=== PATIENT | male | born 1950 | race Caucasian/White ===

== ENCOUNTER 2017-12-13 12:34 | Inpatient (IN) ==
[2017-12-13] MEDS ORDERED: MAGNESIUM HYDROXIDE 30 ML ORAL.SUSP PO PRN (13:54)
[2017-12-13] MEDS ORDERED: ONDANSETRON 4 MG/2 ML VIAL IV PRN (13:54)
[2017-12-13] MEDS ORDERED: ACETAMINOPHEN 1,000 MG/100 ML BOTTLE IV PRN (13:54)
[2017-12-13] MEDS ORDERED: POTASSIUM CHLORIDE 20 MEQ PACKET PO PRN (13:54)
[2017-12-13] MEDS ORDERED: MAGNESIUM SULFATE 2 GM/50 ML BAG IV PRN (13:54)
[2017-12-13] MEDS ORDERED: LEVOFLOXACIN 750 MG/150 ML BAG IV ONE (15:00)
[2017-12-13] MEDS: 0.9 % SODIUM CHLORIDE 10 ML SYRINGE IV SCH ×2 (15:17→21:06)
[2017-12-13] MEDS: IPRATROPIUM/ALBUTEROL 3 ML AMPUL.NEB NEB SCH ×3 (15:19→23:05)
[2017-12-13 15:22] LABS: C-Reactive Protein 20.3 mg/dl (0.0-0.8)
--- NOTE | 2017-12-13 15:36 | History and Physical Report ---
DATE OF ADMISSION: 12/13/2017 REASON FOR ADMISSION: Shortness of breath, weakness, and fever. HISTORY OF CHIEF COMPLAINT: The patient is a 67-year-old gentleman with over 42-[id number] history of smoking, an active smoker who went in to [facility] ER with worsening shortness of breath that had evolved over the last 7 days. The patient's symptoms started with upper respiratory symptoms, coryza, runny nose, and not feeling well. However, over the last couple of days he has gotten progressively short of breath, limiting his ability to function. He has been increasingly expectorating white, frothy sputum. He had associated fever along with chills and sweats. He denies headache, diarrhea, chest pain. Initial workup in the ER was significant for a white count of 12.6, sats in low 70s on room air with a pH of 7.33. Due to lack of availability of beds at [facility], Hospitalist Service was consulted at [facility]. The patient also in the meanwhile had a chest x-ray done which showed bibasilar infiltrates, suspected for pneumonia, along with EKG with sinus tachycardia without any ST changes. On arrival to the ICU, the patient is off BiPAP as he did not tolerate on the way. He is in significant distress, unable to talk in full sentences. He was able to endorse history as above. He denies recent travel. He denies taking pneumonia or flu vaccine. His last hospitalization for pneumonia was 2 years ago at [facility]. He denies changes in medications. He continues to smoke. However, pledges to quit and has not had a smoke in the last 3 days. REVIEW OF SYSTEMS: A 10-point review of system was performed and is negative except the ones discussed above. PAST MEDICAL HISTORY: 1. History of COPD. 2. Active smoker. 3. History of hypertension. CURRENT MEDICATIONS: 1. Tiotropium b.i.d. 2. Prednisone 50 mg daily. 3. Levofloxacin. 4. Hydrochlorothiazide 25 mg daily. 5. Symbicort inhaled twice daily. 6. Zithromax 250 mg daily. SOCIAL HISTORY: The patient lives at [place]. He has two brothers who remain in close touch with him. He otherwise manages fairly independently. He continues to smoke. He uses a fair amount of alcohol. No substance abuse. Immunization history: No recent flu or pneumonia vaccine. CODE STATUS: FULL CODE. PHYSICAL EXAMINATION: GENERAL: The patient is alert, oriented, significantly anxious, short of breath and tachycardic. VITAL SIGNS: Blood pressure 131/77, respiration rate 36, temperature 100.1, pulse 110, sats 96% on 7 liters oxygen. HEENT: Pupils symmetric. Oral cavity is dry. No ear or nose discharge. Head is normocephalic and atraumatic. CHEST: abored, tachypneic. Diminished breath sounds at bases with bronchial breath sounds left posterior chest, tachycardia. ESM grade 1. Diminished breath sounds. ABDOMEN: Soft and nontender. LOWER EXTREMITIES: No cyanosis or clubbing. No joint swelling. SKIN: No suspicious lesions. PSYCH: Alert, anxious and slightly diaphoretic but cooperative. NEURO: Nonfocal, moving all four extremities. LABS AND IMAGING: [id number] sodium 133, potassium 4.4, creatinine 1.8, BUN 34, calcium 1.06. White count 12.6, hemoglobin 15.9, and platelets 180. BUN 29. LFTs unremarkable except for bilirubin of 1.5. X-ray chest: Bilateral infiltrates. EKG: Sinus tachycardia. ASSESSMENT AND PLAN: A 67-year-old with history of long-term smoking, likely underlying COPD, admitted with bilateral pneumonia, severe sepsis, hypoxic respiratory failure. 1. Hypoxic respiratory failure secondary to combination of bilateral pneumonia and COPD exacerbation. Continue supplemental oxygen. Start noninvasive ventilation if patient continues to deteriorate. Await ABG, repeat serial chest imaging. 2. Bilateral pneumonia, likely community-acquired versus aspiration. Continue empiric coverage for gram-negatives/anaerobes with Zosyn, along with an atypicals with Levaquin. Continue clinical monitoring and follow CXR. Await sputum, Gram stain culture, along with urine pneumophila, strep pneumo and mycoplasma IgM. 3. Sepsis. Continue management per guidelines. Continue venous lactate trending. Monitor for end-organ dysfunction. 4. COPD exacerbation. Continue bronchodilators, steroids. 5. History of hypertension with systolics around 130. Hold antihypertensives until systolics over 160. 6. CODE STATUS: FULL CODE. 7. DVT prophylaxis will be on heparin. PLAN FOR TODAY: 1. Admit as inpatient in ICU. 2. Noninvasive ventilation. 3. Broad antibiotic coverage. 4. Blood gas and serial chest imaging. 5. [place] II score 20. High risk mortality. total time spent 65 minutes on history and physical. In addition 35 minutes critical care time spent on stabilizing patient admitted to ICU, noninvasive ventilation, treatment plan. AA:aleisha Job ID: [id number] Doc ID: [id number] Ham SIMMONS
[2017-12-13] MEDS: PIPERACILLIN SODIUM/TAZOBACTAM 2.25 GM in DEXTROSE 5% IN WATER 50 ML IV SCH (17:03)
[2017-12-13] MEDS: 0.9 % SODIUM CHLORIDE 1,000 ML IV SCH (17:35)
[2017-12-13] MEDS: methylPREDNISolone SOD SUCC 125 MG/2 ML VIAL IV SCH (17:41)
[2017-12-13] MEDS: ACETAMINOPHEN 325 MG TABLET PO PRN (17:42)
[2017-12-13] MEDS: BUDESONIDE 0.5 MG/2 ML AMPUL.NEB NEB SCH (19:00)
[2017-12-13] MEDS ORDERED: LORazepam 2 MG/ML VIAL ONE ×2 (20:00→20:19)
[2017-12-13] MEDS: SENNOSIDES/DOCUSATE SODIUM 1 TAB TABLET PO SCH (20:02)
[2017-12-13] MEDS: HEPARIN 5,000 UNIT/ML VIAL SQ SCH (20:02)
[2017-12-13] MEDS: DOCUSATE SODIUM 100 MG CAPSULE PO SCH (20:02)
[2017-12-13] MEDS ORDERED: TAMSULOSIN 0.4 MG CAPSULE PO ONE (21:24)
[2017-12-14] MEDS: PIPERACILLIN SODIUM/TAZOBACTAM 2.25 GM in DEXTROSE 5% IN WATER 50 ML IV SCH ×4 (00:09→18:23)
[2017-12-14] MEDS: methylPREDNISolone SOD SUCC 125 MG/2 ML VIAL IV SCH ×4 (00:11→18:24)
[2017-12-14] MEDS: IPRATROPIUM/ALBUTEROL 3 ML AMPUL.NEB NEB SCH ×6 (03:38→23:02)
[2017-12-14 04:18] LABS: Appearance,Urine CLEAR; Bacteria,Urine 0 /hpf (0); Bilirubin,Urine NEG (NEG); Color,Urine YELLOW; Glucose,Urine (UA) NEGATIVE (NEG); Leukocyte Esterase,Urine NEG /uL (NEG); Protein,Urine 100 mg/dL (NEG); Specific Gravity,Urine 1.019 (1.000-1.035); Sperm,Urine PRESENT /hpf (ABSENT); Urine Blood NEG mg/dL (<0.03); Urine RBC 0 /hpf (0-1); Urine Squamous Epithelial Cell 0 /hpf (0-4); Urine WBC 1 /hpf (0-4); Urobilinogen,Urine NEG (NEG)
[2017-12-14] MEDS: 0.9 % SODIUM CHLORIDE 10 ML SYRINGE IV SCH ×7 (05:54→22:15)
[2017-12-14 06:19] LABS: Mean Cell Volume 100.5 fL (80.0-100.0); Mean Corpuscular HGB Conc 34.2 g/dL (31.0-36.0); Mean Corpuscular Hemoglobin 34.3 pg (26.0-34.0); Platelet Count 127 K/mcL (140-440); RBC 4.16 M/mcL (4.50-5.90); Red Cell Distribution Width 15.5 % (11.5-14.5)
[2017-12-14 06:25] LABS: ALT/SGPT 24 U/l (0-40); Albumin 2.6 gm/dL (3.2-5.2); Albumin/Globulin Ratio 0.6 (1.0-2.3); Alkaline Phosphatase 30 U/L (39-117); Bilirubin,Direct < 0.2 mg/dL (0.0-0.3); Blood Urea Nitrogen 30 mg/dl (8-23); Gamma Glutamyl Transpeptidase 12 U/L (8-61)
[2017-12-14 06:51] LABS: Anisocytosis 1+ (NONE SEEN); Band Neutrophils % 37 % (0-10); Lymphocytes % 7 % (15-49); Macrocytosis 1+ (NONE SEEN); Monocytes % (Manual) 4 % (1-12); Platelet Estimate DECREASED (NORMAL); RBC Morphology ABNORM (NORMAL); Segmented Neutrophils % 52 % (38-78)
[2017-12-14] MEDS: BUDESONIDE 0.5 MG/2 ML AMPUL.NEB NEB SCH ×2 (07:21→19:05)
[2017-12-14] MEDS ORDERED: TAMSULOSIN 0.4 MG CAPSULE PO ONE (09:00)
[2017-12-14] MEDS: DOCUSATE SODIUM 100 MG CAPSULE PO SCH ×2 (09:45→23:49)
[2017-12-14] MEDS: NICOTINE 21 MG PATCH TOPICAL SCH ×2 (09:45→11:11)
[2017-12-14] MEDS: MULTIVIT,THER IRON,CA,FA & MIN 1 TABLET PO SCH (09:45)
[2017-12-14] MEDS: HEPARIN 5,000 UNIT/ML VIAL SQ SCH ×2 (09:45→21:20)
[2017-12-14] MEDS: 0.9 % SODIUM CHLORIDE 1,000 ML IV SCH (16:58)
--- NOTE | 2017-12-14 19:52 | Internal Med Progress Note ---
Medical - PN: Subj Patient information: Note initiated : 12/14/17 at 7:50 pm Service Date, if different from initiated Date: [] Patient: Tony Newton 67 y/o M admitted on 12/13/17 for Respiratory Distress/Pneumonia, Sepsis, Hypoxia. Chief Complaint: [] Interval history: The patient is a 67-year-old gentleman with over 48-bkht-[id number] history of smoking, an active smoker who went in to [facility] ER with worsening shortness of breath that had evolved over the last 7 days. The patient's symptoms started with upper respiratory symptoms, coryza, runny nose, and not feeling well. However, over the last couple of days he has gotten progressively short of breath, limiting his ability to function. He has been increasingly expectorating white, frothy sputum. He had associated fever along with chills and sweats. He denies headache, diarrhea, chest pain. Initial workup in the ER was significant for a white count of 12.6, sats in low 70s on room air with a pH of 7.33. Due to lack of availability of beds at [facility], Hospitalist Service was consulted at [facility]. The patient also in the meanwhile had a chest x-ray done which showed bibasilar infiltrates, suspected for pneumonia, along with EKG with sinus tachycardia without any ST changes. On arrival to the ICU, the patient is off BiPAP as he did not tolerate on the way. He is in significant distress, unable to talk in full sentences. He was able to endorse history as above. He denies recent travel. He denies taking pneumonia or flu vaccine. His last hospitalization for pneumonia was 2 years ago at [facility]. He denies changes in medications. He continues to smoke. However, pledges to quit and has not had a smoke in the last 3 days. December 14 Patient seen and examined, overnight the patient did require BiPAP because of respiratory distress however this morning he is able to remain off BiPAP and able to provide some history. He still complains of shortness of breath but feels better than last night. The patient denies any other symptoms. Has any chest pain no headache no dizziness. He is able to tolerate p.o. diet well without any nausea vomiting. Pertinent ROS: Denies headache, dizziness Denies chest pain, palpitations Improving cough and shortness of breath Denies abdominal pain, nausea or vomiting. - Constitutional Vitals: Vital Signs Temp Pulse Resp BP Pulse Ox 98.7 F 110 H 24 H 157/96 97 12/14/17 16:01 12/14/17 19:15 12/14/17 19:15 12/14/17 18:14 12/14/17 18:14 Period Temp Pulse Resp BP Sys/Raya Pulse Ox Last 24 Hr 97.3 F-99.4 F 87-110 20-38 121-168/71-126 91-100 Intake and Output 12/14/17 12/14/17 12/14/17 05:59 13:59 21:59 Intake Total 1050 / 1050 100 / 100 440 / 440 Output Total 750 / 750 1 / 1 Balance 300 / 300 100 / 100 439 / 439 Weight 144 lb 9.6 oz Patient Weight 12/15/17 05:59 Weight 144 lb 9.6 oz Intake & Output: Intake & Output 12/14/17 12/14/17 12/14/17 05:59 13:59 21:59 Intake Total 1050 / 1050 100 / 100 440 / 440 Output Total 750 / 750 1 / 1 Balance 300 / 300 100 / 100 439 / 439 Weight 144 lb 9.6 oz Intake: IV 1050 / 1050 100 / 100 Sodium Chloride 0.9% 1,000 ml @ 1000 / 1000 Wide Open IV [facility] Rx#: [id number] Zosyn 2.25 gm In Dextrose 5% in 50 / 50 100 / 100 Water 50 ml @ 100 mls/hr IV Q6H [facility] Rx#:[id number] Oral 440 / 440 Output: Urine Catheter Amount 750 / 750 Urine/Stool Mix Other: Meal Dinner Percent of Meal Consumed 50% Feeding Ability Independent Stool Size Small Stool Color Brown Stool Consistency Soft Exam: Constitutional; Afebrile, cooperative, alert, not in distress. Eyes- No icterus, , No periorbital swelling Ears- Ext ear normal, hearing normal to conversation. Neck- Midline trachea, supple Respiratory system: Air Entry equal on both sides bibasilar crackles, henrique wheezing noted. CVS- Rate rhythm regular, S1,S2 heard, no gallop, no rub. 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 Medical - PN: Obj Da - Labs CBC & Chem 7: 12/14/17 04:18 12/14/17 04:18 Labs: Abnormal Lab Results 12/14/17 12/14/17 12/14/17 04:18 04:18 02:39 RBC 4.16 L MCV 100.5 H MCH 34.3 H RDW 15.5 H Plt Count 127 L Band Neutrophils % 37 H Lymphocytes % 7 L Platelet Estimate Decreased A RBC Morphology Abnorm A Anisocytosis 1+ A Macrocytosis 1+ A ESR VBG Lactic Acid Carbon Dioxide 21 L POC BUN BUN 30 H POC Creatinine Glucose 117 H POC Glucose POC WB Ioniz Calcium AST 40 H Alkaline Phosphatase 30 L Lactate Dehydrogenase 300 H C-Reactive Protein Albumin 2.6 L Globulin 4.6 H Albumin/Globulin Ratio 0.6 L Urine Protein 100 A Urine Sperm Present A 12/13/17 12/13/17 12/13/17 14:12 14:12 14:12 RBC MCV MCH RDW Plt Count Band Neutrophils % Lymphocytes % Platelet Estimate RBC Morphology Anisocytosis Macrocytosis ESR VBG Lactic Acid 3.4 H Carbon Dioxide POC BUN 34 H BUN POC Creatinine 1.8 H Glucose POC Glucose 135 H POC WB Ioniz Calcium 1.06 L AST Alkaline Phosphatase Lactate Dehydrogenase C-Reactive Protein 20.3 H Albumin Globulin Albumin/Globulin Ratio Urine Protein Urine Sperm 12/13/17 14:12 RBC MCV MCH RDW Plt Count Band Neutrophils % Lymphocytes % Platelet Estimate RBC Morphology Anisocytosis Macrocytosis ESR 32 H VBG Lactic Acid Carbon Dioxide POC BUN BUN POC Creatinine Glucose POC Glucose POC WB Ioniz Calcium AST Alkaline Phosphatase Lactate Dehydrogenase C-Reactive Protein Albumin Globulin Albumin/Globulin Ratio Urine Protein Urine Sperm Meds: Medications Acetaminophen (Tylenol) 650 mg PO Q4-6HP PRN PRN Reason: PAIN/FEVER > 101 Last Admin: 12/13/17 17:42 Dose: 650 mg Albuterol/Ipratropium (Duoneb) 3 ml NEB Q4HRT [facility] Last Admin: 12/14/17 19:14 Dose: 3 ml Budesonide (Pulmicort) 0.5 mg NEB Q12 [facility] Last Admin: 12/14/17 19:05 Dose: 0.5 mg Docusate Sodium (Colace) 100 mg PO BID [facility] Last Admin: 12/14/17 09:45 Dose: 100 mg Heparin Sodium (Porcine) (Heparin) 5,000 unit SQ Q12 [facility] Last Admin: 12/14/17 09:45 Dose: 5,000 unit Levofloxacin (Levaquin) 750 mg in 150 mls @ 100 mls/hr IV Q48H [facility] Magnesium Sulfate (Magnesium Sulfate) 2 gm in 50 mls @ 50 mls/hr IV UD PRN PRN Reason: MG = or < 1.7 Acetaminophen (Ofirmev) 1,000 mg in 100 mls @ 200 mls/hr IV Q6HP PRN PRN Reason: PAIN/FEVER > 101 Piperacillin Sod/Tazobactam (Sod 2.25 gm/ Dextrose) 50 mls @ 100 mls/hr IV Q6H [facility] Last Admin: 12/14/17 18:23 Dose: 100 mls/hr Sodium Chloride (Sodium Chloride 0.9%) 1,000 mls @ 0 mls/hr IV BOLUS [facility] PRN Reason: Wide Open Last Admin: 12/14/17 16:58 Dose: Not Given Iron Carb/Multivit/Dredge Pumper/Folic Acid (Multivitamin W/Minerals) 1 tab PO DAILY [facility] Last Admin: 12/14/17 09:45 Dose: 1 tab Lorazepam (Ativan) 0 mg IV Q4HP PRN PRN Reason: ANXIETY/SEDATION Magnesium Hydroxide (Milk Of Magnesia) 30 ml PO HSP PRN PRN Reason: Constipation Methylprednisolone Sodium Succinate (Solu-Medrol) 60 mg IV Q6 [facility] Last Admin: 12/14/17 18:24 Dose: 60 mg Nicotine (Nicoderm) 21 mg TOPICAL DAILY@1000 [facility] Last Admin: 12/14/17 11:11 Dose: Not Given Ondansetron HCl (Zofran) 4 mg IV Q4-6HP PRN PRN Reason: Nausea And Vomiting Potassium Chloride (Klor-Con) 40 meq PO DAILYP PRN PRN Reason: K+ < 3.5 Senna/Docusate Sodium (Senna Plus Tablet) 1 tab PO HS [facility] Last Admin: 12/13/17 20:02 Dose: 1 tab Sodium Chloride (Saline Flush) 10 ml IV Q8 [facility] Last Admin: 12/14/17 18:26 Dose: 10 ml Medical - PN: A/P - Time Spent With Patient Total time spent is greater than 50% in coordination of care (as documented) at patient's floor/unit and/or counseling patient: - Narrative A/P Narrative: A/P Acute hypoxic respiratory failure BIlateral Pneumonia Severe Sepsis COPD exacerbation, Acute Hypertension Lactic acidosis resolved (last lactate 1.9 on ABG) Plan Continue to monitor on pcu status Continue IV antibiotics, steroids and duonebs continue respiratory support with bipap, ABG reviewed monitor x ray pt on zosyn and levoflox await microbiology descalate abx as per culture results. strep and mycoplasma pneumoniae negative. hep sq dvt prophylaxis Diet dysphagia diet full code. Medical - PN: Qual - Stroke Symptom Onset Unknown: No - VTE Deep Vein Thrombosis/Pulmonary Embolism Present on Admission: No
[2017-12-14] MEDS: LORazepam 2 MG/ML VIAL IV PRN (21:15)
[2017-12-14] MEDS: SENNOSIDES/DOCUSATE SODIUM 1 TAB TABLET PO SCH (23:49)
[2017-12-15] MEDS: PIPERACILLIN SODIUM/TAZOBACTAM 2.25 GM in DEXTROSE 5% IN WATER 50 ML IV SCH ×4 (00:58→18:29)
[2017-12-15] MEDS: methylPREDNISolone SOD SUCC 125 MG/2 ML VIAL IV SCH ×4 (01:00→18:30)
[2017-12-15] MEDS: IPRATROPIUM/ALBUTEROL 3 ML AMPUL.NEB NEB SCH ×6 (03:10→23:27)
[2017-12-15 05:40] LABS: Mean Cell Volume 100.8 fL (80.0-100.0); Mean Corpuscular HGB Conc 33.5 g/dL (31.0-36.0); Mean Corpuscular Hemoglobin 33.8 pg (26.0-34.0); Platelet Count 160 K/mcL (140-440); RBC 3.89 M/mcL (4.50-5.90); Red Cell Distribution Width 15.4 % (11.5-14.5)
[2017-12-15 06:00] LABS: ALT/SGPT 21 U/l (0-40); Albumin 2.5 gm/dL (3.2-5.2); Albumin/Globulin Ratio 0.6 (1.0-2.3); Alkaline Phosphatase 30 U/L (39-117); Bilirubin,Direct < 0.2 mg/dL (0.0-0.3); Blood Urea Nitrogen 34 mg/dl (8-23); Gamma Glutamyl Transpeptidase 11 U/L (8-61)
[2017-12-15] MEDS: 0.9 % SODIUM CHLORIDE 10 ML SYRINGE IV SCH ×3 (06:17→20:45)
--- NOTE | 2017-12-15 06:20 | XRay Report ---
INDICATION: Pneumonia. Dyspnea. TECHNIQUE: AP chest x-ray,portable semiupright COMPARISON: None FINDINGS:Lungs are negative. No parenchymal infiltrate or mass. No consolidation. Heart size and vascularity are normal. No pulmonary edema or pulmonary congestion. IMPRESSION: No acute or focal abnormality Interpreted and Authenticated by: Stew Connelly 12/15/17
[2017-12-15] MEDS: BUDESONIDE 0.5 MG/2 ML AMPUL.NEB NEB SCH ×2 (07:08→19:18)
[2017-12-15 07:37] LABS: Band Neutrophils % 8 % (0-10); Lymphocytes % 3 % (15-49); Macrocytosis 1+ (NONE SEEN); Monocytes % (Manual) 2 % (1-12); Platelet Estimate NORMAL (NORMAL); RBC Morphology ABNORM (NORMAL); Segmented Neutrophils % 86 % (38-78)
[2017-12-15] MEDS: HEPARIN 5,000 UNIT/ML VIAL SQ SCH ×2 (08:39→20:44)
[2017-12-15] MEDS: MULTIVIT,THER IRON,CA,FA & MIN 1 TABLET PO SCH (08:39)
[2017-12-15] MEDS: DOCUSATE SODIUM 100 MG CAPSULE PO SCH ×2 (08:49→20:13)
[2017-12-15] MEDS ORDERED: LEVOFLOXACIN 750 MG/150 ML BAG IV SCH (09:00)
[2017-12-15] MEDS: NICOTINE 21 MG PATCH TOPICAL SCH (10:02)
[2017-12-15] MEDS: hydrALAZINE 20 MG/ML VIAL IV PRN ×2 (10:14→20:54)
--- NOTE | 2017-12-15 15:57 | Internal Med Progress Note ---
Medical - PN: Subj Patient information: Note initiated : 12/15/17 at 3:54 pm Service Date, if different from initiated Date: [] Patient: Tony Newton 67 y/o M admitted on 12/13/17 for Respiratory Distress/Pneumonia, Sepsis, Hypoxia. Chief Complaint: [] Interval history: The patient is a 67-year-old gentleman with over 42-[id number]-twry history of smoking, an active smoker who went in to [facility] ER with worsening shortness of breath that had evolved over the last 7 days. The patient's symptoms started with upper respiratory symptoms, coryza, runny nose, and not feeling well. However, over the last couple of days he has gotten progressively short of breath, limiting his ability to function. He has been increasingly expectorating white, frothy sputum. He had associated fever along with chills and sweats. He denies headache, diarrhea, chest pain. Initial workup in the ER was significant for a white count of 12.6, sats in low 70s on room air with a pH of 7.33. Due to lack of availability of beds at [facility], Hospitalist Service was consulted at [facility]. The patient also in the meanwhile had a chest x-ray done which showed bibasilar infiltrates, suspected for pneumonia, along with EKG with sinus tachycardia without any ST changes. On arrival to the ICU, the patient is off BiPAP as he did not tolerate on the way. He is in significant distress, unable to talk in full sentences. He was able to endorse history as above. He denies recent travel. He denies taking pneumonia or flu vaccine. His last hospitalization for pneumonia was 2 years ago at [facility]. He denies changes in medications. He continues to smoke. However, pledges to quit and has not had a smoke in the last 3 days. December 14 Patient seen and examined, overnight the patient did require BiPAP because of respiratory distress however this morning he is able to remain off BiPAP and able to provide some history. He still complains of shortness of breath but feels better than last night. The patient denies any other symptoms. Has any chest pain no headache no dizziness. He is able to tolerate p.o. diet well without any nausea vomiting. December 15 Patient seen and examined no acute overnight events, tolerated BiPAP well last night. This morning he is on nasal cannula sitting comfortably in the bed does not have any shortness of breath while resting. He is able to tolerate p.o. but does not have much of an appetite. Labs reviewed. He has no acute complaints Pertinent ROS: Denies headache, dizziness Denies chest pain, palpitations Improving cough and shortness of breath Denies abdominal pain, nausea or vomiting. - Constitutional Vitals: Vital Signs Temp Pulse Resp BP Pulse Ox 98.9 F 107 H 23 H 140/89 100 12/15/17 12:57 12/15/17 15:53 12/15/17 15:53 12/15/17 15:31 12/15/17 15:53 Period Temp Pulse Resp BP Sys/Raya Pulse Ox Last 24 Hr 97.8 F-99.0 F 92-118 20-34 135-186/82-115 89-100 Intake and Output 12/15/17 12/15/17 12/15/17 05:59 13:59 21:59 Intake Total 100 / 100 1130 / 1130 Output Total 500 / 500 Balance 100 / 100 630 / 630 Intake & Output: Intake & Output 12/15/17 12/15/17 12/15/17 05:59 13:59 21:59 Intake Total 100 / 100 1130 / 1130 Output Total 500 / 500 Balance 100 / 100 630 / 630 Intake: IV 100 / 100 50 / 50 Zosyn 2.25 gm In Dextrose 5% in 100 / 100 50 / 50 Water 50 ml @ 100 mls/hr IV Q6H [facility] Rx#:[id number] Oral 1080 / 1080 Output: Void Amount 100 / 100 Urine/Stool Mix 400 / 400 Other: Meal Lunch Percent of Meal Consumed 100% Stool Size Moderate Stool Color Brown Stool Consistency Soft # Bowel Movements 0 # of times incontinent of 1 Bowels Exam: Constitutional; Afebrile, cooperative, alert, not in distress. Eyes- No icterus, , No periorbital swelling Ears- Ext ear normal, hearing normal to conversation. Neck- Midline trachea, supple Respiratory system: Air Entry equal on both sides, but significantly diminished , and it is however better than yesterday patient still has significant wheezing he is able to speak full sentences no accessory muscle use CVS- Rate rhythm regular, S1,S2 heard, no gallop, no rub. 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 Medical - PN: Obj Da - Labs CBC & Chem 7: 12/15/17 04:05 12/15/17 04:05 Labs: Abnormal Lab Results 12/15/17 12/15/17 12/14/17 04:05 04:05 04:18 RBC 3.89 L Hgb 13.1 L Hct 39.2 L MCV 100.8 H MCH RDW 15.4 H Plt Count Seg Neutrophils % 86 H Band Neutrophils % Lymphocytes % 3 L Platelet Estimate RBC Morphology Abnorm A Anisocytosis Macrocytosis 1+ A ESR VBG Lactic Acid Carbon Dioxide 21 L POC BUN BUN 34 H 30 H POC Creatinine Glucose 137 H 117 H POC Glucose POC WB Ioniz Calcium AST 40 H Alkaline Phosphatase 30 L 30 L Lactate Dehydrogenase 300 H C-Reactive Protein Albumin 2.5 L 2.6 L Globulin 4.5 H 4.6 H Albumin/Globulin Ratio 0.6 L 0.6 L Urine Protein Urine Sperm 12/14/17 12/14/17 12/13/17 04:18 02:39 14:12 RBC 4.16 L Hgb Hct MCV 100.5 H MCH 34.3 H RDW 15.5 H Plt Count 127 L Seg Neutrophils % Band Neutrophils % 37 H Lymphocytes % 7 L Platelet Estimate Decreased A RBC Morphology Abnorm A Anisocytosis 1+ A Macrocytosis 1+ A ESR VBG Lactic Acid Carbon Dioxide POC BUN 34 H BUN POC Creatinine 1.8 H Glucose POC Glucose 135 H POC WB Ioniz Calcium 1.06 L AST Alkaline Phosphatase Lactate Dehydrogenase C-Reactive Protein Albumin Globulin Albumin/Globulin Ratio Urine Protein 100 A Urine Sperm Present A 12/13/17 12/13/17 12/13/17 14:12 14:12 14:12 RBC Hgb Hct MCV MCH RDW Plt Count Seg Neutrophils % Band Neutrophils % Lymphocytes % Platelet Estimate RBC Morphology Anisocytosis Macrocytosis ESR 32 H VBG Lactic Acid 3.4 H Carbon Dioxide POC BUN BUN POC Creatinine Glucose POC Glucose POC WB Ioniz Calcium AST Alkaline Phosphatase Lactate Dehydrogenase C-Reactive Protein 20.3 H Albumin Globulin Albumin/Globulin Ratio Urine Protein Urine Sperm Meds: Medications Acetaminophen (Tylenol) 650 mg PO Q4-6HP PRN PRN Reason: PAIN/FEVER > 101 Last Admin: 12/13/17 17:42 Dose: 650 mg Albuterol/Ipratropium (Duoneb) 3 ml NEB Q4HRT [facility] Last Admin: 12/15/17 14:42 Dose: 3 ml Budesonide (Pulmicort) 0.5 mg NEB Q12 [facility] Last Admin: 12/15/17 07:08 Dose: 0.5 mg Docusate Sodium (Colace) 100 mg PO BID [facility] Last Admin: 12/15/17 08:49 Dose: Not Given Heparin Sodium (Porcine) (Heparin) 5,000 unit SQ Q12 [facility] Last Admin: 12/15/17 08:39 Dose: 5,000 unit Hydralazine HCl (Apresoline) 10 mg IV Q4-6HP PRN PRN Reason: Hypertension Last Admin: 12/15/17 10:14 Dose: 10 mg Levofloxacin (Levaquin) 750 mg in 150 mls @ 100 mls/hr IV Q48H [facility] Last Admin: 12/15/17 08:42 Dose: 100 mls/hr Magnesium Sulfate (Magnesium Sulfate) 2 gm in 50 mls @ 50 mls/hr IV UD PRN PRN Reason: MG = or < 1.7 Acetaminophen (Ofirmev) 1,000 mg in 100 mls @ 200 mls/hr IV Q6HP PRN PRN Reason: PAIN/FEVER > 101 Piperacillin Sod/Tazobactam (Sod 2.25 gm/ Dextrose) 50 mls @ 100 mls/hr IV Q6H [facility] Last Admin: 12/15/17 12:03 Dose: 100 mls/hr Iron Carb/Multivit/Benton/Folic Acid (Multivitamin W/Minerals) 1 tab PO DAILY [facility] Last Admin: 12/15/17 08:39 Dose: 1 tab Lorazepam (Ativan) 0 mg IV Q4HP PRN PRN Reason: ANXIETY/SEDATION Last Admin: 12/14/17 21:15 Dose: 0.5 mg Magnesium Hydroxide (Milk Of Magnesia) 30 ml PO HSP PRN PRN Reason: Constipation Methylprednisolone Sodium Succinate (Solu-Medrol) 60 mg IV Q6 [facility] Last Admin: 12/15/17 12:03 Dose: 60 mg Nicotine (Nicoderm) 21 mg TOPICAL DAILY@1000 [facility] Last Admin: 12/15/17 10:02 Dose: Not Given Ondansetron HCl (Zofran) 4 mg IV Q4-6HP PRN PRN Reason: Nausea And Vomiting Potassium Chloride (Klor-Con) 40 meq PO DAILYP PRN PRN Reason: K+ < 3.5 Senna/Docusate Sodium (Senna Plus Tablet) 1 tab PO HS [facility] Last Admin: 12/14/17 23:49 Dose: Not Given Sodium Chloride (Saline Flush) 10 ml IV Q8 [facility] Last Admin: 12/15/17 12:48 Dose: 10 ml Medical - PN: A/P - Time Spent With Patient Total time spent is greater than 50% in coordination of care (as documented) at patient's floor/unit and/or counseling patient: - Narrative A/P Narrative: A/P Acute hypoxic respiratory failure BIlateral Pneumonia Severe Sepsis COPD exacerbation, Acute Hypertension, uncontrolled Lactic acidosis resolved (last lactate 1.9 on ABG) Plan Continue to monitor on pcu status Continue IV antibiotics, steroids and duonebs, patient is improving however slowly continue respiratory support with bipap, on nasal cannula now keep BiPAP on an as-needed basis Continue pt on zosyn and levoflox await microbiology descalate abx as per culture results. strep and mycoplasma pneumoniae negative. IV hydralazine as needed if the patient's blood pressure goes up to high hep sq dvt prophylaxis Diet dysphagia diet full code. Medical - PN: Qual - Stroke Symptom Onset Unknown: No - VTE Deep Vein Thrombosis/Pulmonary Embolism Present on Admission: No
[2017-12-15] MEDS: SENNOSIDES/DOCUSATE SODIUM 1 TAB TABLET PO SCH (20:13)
[2017-12-15] MEDS: LORazepam 2 MG/ML VIAL IV PRN (20:44)
[2017-12-16] MEDS: methylPREDNISolone SOD SUCC 125 MG/2 ML VIAL IV SCH ×4 (00:24→18:00)
[2017-12-16] MEDS: PIPERACILLIN SODIUM/TAZOBACTAM 2.25 GM in DEXTROSE 5% IN WATER 50 ML IV SCH ×4 (00:25→17:30)
[2017-12-16] MEDS: IPRATROPIUM/ALBUTEROL 3 ML AMPUL.NEB NEB SCH ×7 (03:23→22:09)
[2017-12-16 05:01] LABS: Mean Cell Volume 100.5 fL (80.0-100.0); Mean Corpuscular HGB Conc 33.8 g/dL (31.0-36.0); Platelet Count 177 K/mcL (140-440); RBC 3.82 M/mcL (4.50-5.90); Red Cell Distribution Width 15.5 % (11.5-14.5)
[2017-12-16 05:14] LABS: ALT/SGPT 23 U/l (0-40); Albumin 2.6 gm/dL (3.2-5.2); Albumin/Globulin Ratio 0.6 (1.0-2.3); Alkaline Phosphatase 42 U/L (39-117); Bilirubin,Direct < 0.2 mg/dL (0.0-0.3); Blood Urea Nitrogen 28 mg/dl (8-23); Gamma Glutamyl Transpeptidase 14 U/L (8-61); Uric Acid 3.4 mg/dL (2.5-8.0)
[2017-12-16] MEDS: 0.9 % SODIUM CHLORIDE 10 ML SYRINGE IV SCH ×4 (05:44→22:23)
[2017-12-16 06:58] LABS: Anisocytosis 1+ (NONE SEEN); Band Neutrophils % 10 % (0-10); Howell-Jolly Bodies FEW (NONE SEEN); Lymphocytes % 7 % (15-49); Macrocytosis 1+ (NONE SEEN); Monocytes % (Manual) 2 % (1-12); Platelet Estimate NORMAL (NORMAL); RBC Morphology ABNORM (NORMAL); Segmented Neutrophils % 81 % (38-78)
[2017-12-16] MEDS: DOCUSATE SODIUM 100 MG CAPSULE PO SCH ×2 (07:30→20:36)
[2017-12-16] MEDS: BUDESONIDE 0.5 MG/2 ML AMPUL.NEB NEB SCH ×2 (07:32→22:09)
[2017-12-16] MEDS: HEPARIN 5,000 UNIT/ML VIAL SQ SCH ×2 (08:35→22:08)
[2017-12-16] MEDS: MULTIVIT,THER IRON,CA,FA & MIN 1 TABLET PO SCH (08:36)
[2017-12-16] MEDS: NICOTINE 21 MG PATCH TOPICAL SCH (08:42)
[2017-12-16] MEDS: hydrALAZINE 20 MG/ML VIAL IV PRN (10:04)
--- NOTE | 2017-12-16 12:32 | Internal Med Progress Note ---
Medical - PN: Subj Patient information: Note initiated : 12/16/17 at 12:30 pm Service Date, if different from initiated Date: [] Patient: Tony Newton 67 y/o M admitted on 12/13/17 for Respiratory Distress/Pneumonia, Sepsis, Hypoxia. Chief Complaint: [] Interval history: The patient is a 67-year-old gentleman with over [id number] history of smoking, an active smoker who went in to [facility] ER with worsening shortness of breath that had evolved over the last 7 days. The patient's symptoms started with upper respiratory symptoms, coryza, runny nose, and not feeling well. However, over the last couple of days he has gotten progressively short of breath, limiting his ability to function. He has been increasingly expectorating white, frothy sputum. He had associated fever along with chills and sweats. He denies headache, diarrhea, chest pain. Initial workup in the ER was significant for a white count of 12.6, sats in low 70s on room air with a pH of 7.33. Due to lack of availability of beds at [facility], Hospitalist Service was consulted at [facility]. The patient also in the meanwhile had a chest x-ray done which showed bibasilar infiltrates, suspected for pneumonia, along with EKG with sinus tachycardia without any ST changes. On arrival to the ICU, the patient is off BiPAP as he did not tolerate on the way. He is in significant distress, unable to talk in full sentences. He was able to endorse history as above. He denies recent travel. He denies taking pneumonia or flu vaccine. His last hospitalization for pneumonia was 2 years ago at [facility]. He denies changes in medications. He continues to smoke. However, pledges to quit and has not had a smoke in the last 3 days. December 14 Patient seen and examined, overnight the patient did require BiPAP because of respiratory distress however this morning he is able to remain off BiPAP and able to provide some history. He still complains of shortness of breath but feels better than last night. The patient denies any other symptoms. Has any chest pain no headache no dizziness. He is able to tolerate p.o. diet well without any nausea vomiting. December 15 Patient seen and examined no acute overnight events, tolerated BiPAP well last night. This morning he is on nasal cannula sitting comfortably in the bed does not have any shortness of breath while resting. He is able to tolerate p.o. but does not have much of an appetite. Labs reviewed. He has no acute complaints december 16 Patient seen and examined, no acute overnight events, he was on BiPAP last night. This morning he is on 3 L oxygen and his oxygen saturation is more than 90. He does not have shortness of breath at rest. He still has significant wheezing but air entry is better than yesterday. He denies any acute complaints Pertinent ROS: Denies headache, dizziness Denies chest pain, palpitations Denies cough or shortness of breath (does have shortness of breath on activity) Denies abdominal pain, nausea or vomiting. - Constitutional Vitals: Vital Signs Temp Pulse Resp BP Pulse Ox 98.9 F 102 H 18 150/74 98 12/15/17 18:11 12/16/17 11:05 12/16/17 11:05 12/16/17 11:00 12/16/17 11:05 Period Temp Pulse Resp BP Sys/Raya Pulse Ox Last 24 Hr 98.6 F-98.9 F 85-118 14-40 137-186/74-134 92-100 Intake and Output 12/15/17 12/16/17 12/16/17 21:59 05:59 13:59 Intake Total 100 / 100 50 / 50 410 / 410 Output Total 0 / 0 400 / 400 Balance 100 / 100 50 / 50 10 / 10 Weight 150 lb Intake & Output: Intake & Output 12/15/17 12/16/17 12/16/17 21:59 05:59 13:59 Intake Total 100 / 100 50 / 50 410 / 410 Output Total 0 / 0 400 / 400 Balance 100 / 100 50 / 50 10 / 10 Weight 150 lb Intake: IV 100 / 100 50 / 50 50 / 50 Zosyn 2.25 gm In Dextrose 5% in 100 / 100 50 / 50 50 / 50 Water 50 ml @ 100 mls/hr IV Q6H [facility] Rx#:[id number] Oral 0 / 0 360 / 360 Output: Urine Catheter Amount 0 / 0 Void Amount 400 / 400 Other: Meal Breakfast Percent of Meal Consumed 100% Stool Size Moderate Stool Color Brown # Voids 600 1 # Bowel Movements 1 1 Exam: Constitutional; Afebrile, cooperative, alert, not in distress. Eyes- No icterus, , No periorbital swelling Ears- Ext ear normal, hearing normal to conversation. Neck- Midline trachea, supple Respiratory system: Air Entry equal on both sides, improved air entry, bilateral wheezing present, able to speak full sentences no accessory muscle use CVS- Rate rhythm regular, S1,S2 heard, no gallop, no rub. 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 Medical - PN: Obj Da - Labs CBC & Chem 7: 12/16/17 03:49 12/16/17 03:49 Labs: Abnormal Lab Results 12/16/17 12/16/17 12/15/17 03:49 03:49 04:05 RBC 3.82 L Hgb 13.0 L Hct 38.4 L MCV 100.5 H MCH RDW 15.5 H Plt Count Seg Neutrophils % 81 H Band Neutrophils % Lymphocytes % 7 L Platelet Estimate RBC Morphology Abnorm A Anisocytosis 1+ A Macrocytosis 1+ A Morley-[place]ie Bodies Few A ESR VBG Lactic Acid Carbon Dioxide POC BUN BUN 28 H 34 H POC Creatinine Glucose 137 H 137 H POC Glucose POC WB Ioniz Calcium AST Alkaline Phosphatase 30 L Lactate Dehydrogenase C-Reactive Protein Albumin 2.6 L 2.5 L Globulin 4.1 H 4.5 H Albumin/Globulin Ratio 0.6 L 0.6 L Urine Protein Urine Sperm 12/15/17 12/14/17 12/14/17 04:05 04:18 04:18 RBC 3.89 L 4.16 L Hgb 13.1 L Hct 39.2 L MCV 100.8 H 100.5 H MCH 34.3 H RDW 15.4 H 15.5 H Plt Count 127 L Seg Neutrophils % 86 H Band Neutrophils % 37 H Lymphocytes % 3 L 7 L Platelet Estimate Decreased A RBC Morphology Abnorm A Abnorm A Anisocytosis 1+ A Macrocytosis 1+ A 1+ A Morley-[place] Bodies ESR VBG Lactic Acid Carbon Dioxide 21 L POC BUN BUN 30 H POC Creatinine Glucose 117 H POC Glucose POC WB Ioniz Calcium AST 40 H Alkaline Phosphatase 30 L Lactate Dehydrogenase 300 H C-Reactive Protein Albumin 2.6 L Globulin 4.6 H Albumin/Globulin Ratio 0.6 L Urine Protein Urine Sperm 12/14/17 12/13/17 12/13/17 02:39 14:12 14:12 RBC Hgb Hct MCV MCH RDW Plt Count Seg Neutrophils % Band Neutrophils % Lymphocytes % Platelet Estimate RBC Morphology Anisocytosis Macrocytosis Morley-[place] Bodies ESR VBG Lactic Acid 3.4 H Carbon Dioxide POC BUN 34 H BUN POC Creatinine 1.8 H Glucose POC Glucose 135 H POC WB Ioniz Calcium 1.06 L AST Alkaline Phosphatase Lactate Dehydrogenase C-Reactive Protein Albumin Globulin Albumin/Globulin Ratio Urine Protein 100 A Urine Sperm Present A 12/13/17 12/13/17 14:12 14:12 RBC Hgb Hct MCV MCH RDW Plt Count Seg Neutrophils % Band Neutrophils % Lymphocytes % Platelet Estimate RBC Morphology Anisocytosis Macrocytosis Morley-[place] Bodies ESR 32 H VBG Lactic Acid Carbon Dioxide POC BUN BUN POC Creatinine Glucose POC Glucose POC WB Ioniz Calcium AST Alkaline Phosphatase Lactate Dehydrogenase C-Reactive Protein 20.3 H Albumin Globulin Albumin/Globulin Ratio Urine Protein Urine Sperm Meds: Medications Acetaminophen (Tylenol) 650 mg PO Q4-6HP PRN PRN Reason: PAIN/FEVER > 101 Last Admin: 12/13/17 17:42 Dose: 650 mg Albuterol/Ipratropium (Duoneb) 3 ml NEB Q4HRT [facility] Last Admin: 12/16/17 11:06 Dose: Not Given Budesonide (Pulmicort) 0.5 mg NEB Q12 [facility] Last Admin: 12/16/17 07:32 Dose: 0.5 mg Docusate Sodium (Colace) 100 mg PO BID [facility] Last Admin: 12/16/17 07:30 Dose: Not Given Heparin Sodium (Porcine) (Heparin) 5,000 unit SQ Q12 [facility] Last Admin: 12/16/17 08:35 Dose: 5,000 unit Hydralazine HCl (Apresoline) 10 mg IV Q4-6HP PRN PRN Reason: Hypertension Last Admin: 12/16/17 10:04 Dose: 10 mg Levofloxacin (Levaquin) 750 mg in 150 mls @ 100 mls/hr IV Q48H [facility] Last Admin: 12/15/17 08:42 Dose: 100 mls/hr Magnesium Sulfate (Magnesium Sulfate) 2 gm in 50 mls @ 50 mls/hr IV UD PRN PRN Reason: MG = or < 1.7 Acetaminophen (Ofirmev) 1,000 mg in 100 mls @ 200 mls/hr IV Q6HP PRN PRN Reason: PAIN/FEVER > 101 Piperacillin Sod/Tazobactam (Sod 2.25 gm/ Dextrose) 50 mls @ 100 mls/hr IV Q6H [facility] Last Infusion: 12/16/17 07:31 Dose: Infused Iron Carb/Multivit/[place]/Folic Acid (Multivitamin W/Minerals) 1 tab PO DAILY [facility] Last Admin: 12/16/17 08:36 Dose: 1 tab Lorazepam (Ativan) 0 mg IV Q4HP PRN PRN Reason: ANXIETY/SEDATION Last Admin: 12/15/17 20:44 Dose: 0.5 mg Magnesium Hydroxide (Milk Of Magnesia) 30 ml PO HSP PRN PRN Reason: Constipation Methylprednisolone Sodium Succinate (Solu-Medrol) 60 mg IV Q6 [facility] Last Admin: 12/16/17 05:44 Dose: 60 mg Nicotine (Nicoderm) 21 mg TOPICAL DAILY@1000 [facility] Last Admin: 12/16/17 08:42 Dose: Not Given Ondansetron HCl (Zofran) 4 mg IV Q4-6HP PRN PRN Reason: Nausea And Vomiting Potassium Chloride (Klor-Con) 40 meq PO DAILYP PRN PRN Reason: K+ < 3.5 Senna/Docusate Sodium (Senna Plus Tablet) 1 tab PO HS [facility] Last Admin: 12/15/17 20:13 Dose: Not Given Sodium Chloride (Saline Flush) 10 ml IV Q8 [facility] Last Admin: 12/16/17 10:04 Dose: 10 ml Medical - PN: A/P - Time Spent With Patient Total time spent is greater than 50% in coordination of care (as documented) at patient's floor/unit and/or counseling patient: - Narrative A/P Narrative: A/P Acute hypoxic respiratory failure BIlateral Pneumonia Severe Sepsis COPD exacerbation, Acute Hypertension, uncontrolled Lactic acidosis resolved (last lactate 1.9 on ABG) Plan Transfer to telemetry status Continue IV antibiotics, steroids and duonebs, patient is improving however slowly continue respiratory support with bipap, on nasal cannula now keep BiPAP on an as-needed basis try to see if we can hold off without BiPAP tonight Continue pt on zosyn and levoflox await microbiology negative growth so far deepali abx as per culture results. strep and mycoplasma pneumoniae negative. IV hydralazine as needed if the patient's blood pressure goes up to high Chest x-ray this morning is interpreted as no acute abnormality by the radiologist hep sq dvt prophylaxis Diet dysphagia diet full code. Medical - PN: Qual - Stroke Symptom Onset Unknown: No - VTE Deep Vein Thrombosis/Pulmonary Embolism Present on Admission: No
[2017-12-16] MEDS: ACETAMINOPHEN 325 MG TABLET PO PRN (12:58)
[2017-12-16] MEDS ORDERED: ACETAMINOPHEN 325 MG TABLET PO PRN (14:28)
[2017-12-16] MEDS ORDERED: ACETAMINOPHEN 1,000 MG/100 ML BOTTLE IV PRN (14:28)
[2017-12-16] MEDS ORDERED: MAGNESIUM HYDROXIDE 30 ML ORAL.SUSP PO PRN (14:28)
[2017-12-16] MEDS ORDERED: MAGNESIUM SULFATE 2 GM/50 ML BAG IV PRN (14:28)
[2017-12-16] MEDS ORDERED: ONDANSETRON 4 MG/2 ML VIAL IV PRN (14:28)
[2017-12-16] MEDS ORDERED: POTASSIUM CHLORIDE 20 MEQ PACKET PO PRN (14:28)
[2017-12-16] MEDS ORDERED: LORazepam 2 MG/ML VIAL IV PRN (14:28)
[2017-12-16] MEDS: SENNOSIDES/DOCUSATE SODIUM 1 TAB TABLET PO SCH (20:36)
[2017-12-17] MEDS: methylPREDNISolone SOD SUCC 125 MG/2 ML VIAL IV SCH ×5 (00:19→23:39)
[2017-12-17] MEDS: PIPERACILLIN SODIUM/TAZOBACTAM 2.25 GM in DEXTROSE 5% IN WATER 50 ML IV SCH ×5 (00:22→23:40)
[2017-12-17] MEDS: IPRATROPIUM/ALBUTEROL 3 ML AMPUL.NEB NEB SCH ×6 (03:47→22:42)
[2017-12-17] MEDS: 0.9 % SODIUM CHLORIDE 10 ML SYRINGE IV SCH ×3 (06:11→22:12)
[2017-12-17 06:21] LABS: Mean Cell Volume 100.3 fL (80.0-100.0); Mean Corpuscular HGB Conc 33.8 g/dL (31.0-36.0); Mean Corpuscular Hemoglobin 33.9 pg (26.0-34.0); Platelet Count 202 K/mcL (140-440); RBC 3.97 M/mcL (4.50-5.90); Red Cell Distribution Width 15.5 % (11.5-14.5)
[2017-12-17 06:38] LABS: ALT/SGPT 81 U/l (0-40); Albumin 2.6 gm/dL (3.2-5.2); Albumin/Globulin Ratio 0.7 (1.0-2.3); Alkaline Phosphatase 28 U/L (39-117); Bilirubin,Direct < 0.2 mg/dL (0.0-0.3); Blood Urea Nitrogen 31 mg/dl (8-23); Gamma Glutamyl Transpeptidase 31 U/L (8-61)
[2017-12-17 07:45] LABS: Band Neutrophils % 3 % (0-10); Lymphocytes % 11 % (15-49); Macrocytosis 1+ (NONE SEEN); Metamyelocytes % 3 % (0-0); Monocytes % (Manual) 6 % (1-12); Myelocytes % 1 % (0-0); Platelet Estimate NORMAL (NORMAL); RBC Morphology ABNORM (NORMAL); Segmented Neutrophils % 76 % (38-78)
[2017-12-17] MEDS: HEPARIN 5,000 UNIT/ML VIAL SQ SCH ×2 (08:06→20:23)
[2017-12-17] MEDS: MULTIVIT,THER IRON,CA,FA & MIN 1 TABLET PO SCH (08:06)
[2017-12-17] MEDS: LISINOPRIL 10 MG TABLET PO SCH (08:06)
[2017-12-17] MEDS: oxyCODONE HCL 5 MG TABLET PO PRN ×2 (08:07→20:51)
[2017-12-17] MEDS: DOCUSATE SODIUM 100 MG CAPSULE PO SCH ×2 (08:08→20:24)
[2017-12-17] MEDS: BUDESONIDE 0.5 MG/2 ML AMPUL.NEB NEB SCH ×2 (08:31→19:22)
[2017-12-17] MEDS ORDERED: LEVOFLOXACIN 750 MG/150 ML BAG IV SCH (09:00)
[2017-12-17] MEDS: NICOTINE 21 MG PATCH TOPICAL SCH (12:35)
--- NOTE | 2017-12-17 18:22 | Internal Med Progress Note ---
Medical - PN: Subj Patient information: Note initiated : 12/17/17 at 6:19 pm Service Date, if different from initiated Date: [] Patient: Tony Newton 67 y/o M admitted on 12/13/17 for Respiratory Distress/Pneumonia, Sepsis, Hypoxia. Chief Complaint: [] Interval history: The patient is a 67-year-old gentleman with over 11-[id number]-zzmh history of smoking, an active smoker who went in to [facility] ER with worsening shortness of breath that had evolved over the last 7 days. The patient's symptoms started with upper respiratory symptoms, coryza, runny nose, and not feeling well. However, over the last couple of days he has gotten progressively short of breath, limiting his ability to function. He has been increasingly expectorating white, frothy sputum. He had associated fever along with chills and sweats. He denies headache, diarrhea, chest pain. Initial workup in the ER was significant for a white count of 12.6, sats in low 70s on room air with a pH of 7.33. Due to lack of availability of beds at [facility], Hospitalist Service was consulted at [facility]. The patient also in the meanwhile had a chest x-ray done which showed bibasilar infiltrates, suspected for pneumonia, along with EKG with sinus tachycardia without any ST changes. On arrival to the ICU, the patient is off BiPAP as he did not tolerate on the way. He is in significant distress, unable to talk in full sentences. He was able to endorse history as above. He denies recent travel. He denies taking pneumonia or flu vaccine. His last hospitalization for pneumonia was 2 years ago at [facility]. He denies changes in medications. He continues to smoke. However, pledges to quit and has not had a smoke in the last 3 days. December 14 Patient seen and examined, overnight the patient did require BiPAP because of respiratory distress however this morning he is able to remain off BiPAP and able to provide some history. He still complains of shortness of breath but feels better than last night. The patient denies any other symptoms. Has any chest pain no headache no dizziness. He is able to tolerate p.o. diet well without any nausea vomiting. December 15 Patient seen and examined no acute overnight events, tolerated BiPAP well last night. This morning he is on nasal cannula sitting comfortably in the bed does not have any shortness of breath while resting. He is able to tolerate p.o. but does not have much of an appetite. Labs reviewed. He has no acute complaints december 16 Patient seen and examined, no acute overnight events, he was on BiPAP last night. This morning he is on 3 L oxygen and his oxygen saturation is more than 90. He does not have shortness of breath at rest. He still has significant wheezing but air entry is better than yesterday. He denies any acute complaints december 17 Patient seen and examined, no acute overnight events, he was sitting comfortably in the bed. He is being weaned off oxygen has significant wheezing still. The patient denies any other acute complaints His blood pressure remains elevated patient will be started on lisinopril 10 mg once a day Pertinent ROS: Denies headache, dizziness Denies chest pain, palpitations Denies cough or shortness of breath, he has no complaints at rest Denies abdominal pain, nausea or vomiting. - Constitutional Vitals: Vital Signs Temp Pulse Resp BP Pulse Ox 99.0 F H 101 H 18 170/91 96 12/17/17 16:10 12/17/17 16:10 12/17/17 15:24 12/17/17 16:10 12/17/17 16:10 Period Temp Pulse Resp BP Sys/Raya Pulse Ox Last 24 Hr 99.0 F-99.1 F 87-111 16-22 154-209/91-111 89-100 Intake and Output 12/17/17 12/17/17 12/17/17 05:59 13:59 21:59 Intake Total 50 / 50 1260 / 1260 300 / 300 Output Total 700 / 700 400 / 400 301 / 301 Balance -650 / -650 860 / 860 -1 / -1 Intake & Output: Intake & Output 12/17/17 12/17/17 12/17/17 05:59 13:59 21:59 Intake Total 50 / 50 1260 / 1260 300 / 300 Output Total 700 / 700 400 / 400 301 / 301 Balance -650 / -650 860 / 860 -1 / -1 Intake: IV 50 / 50 100 / 100 Zosyn 2.25 gm In Dextrose 5% in 50 / 50 100 / 100 Water 50 ml @ 100 mls/hr IV Q6H [facility] Rx#:[id number] Oral 1160 / 1160 300 / 300 Output: Urine Catheter Amount 400 / 400 Void Amount 700 / 700 300 / 300 Stool Other: Meal Lunch Dinner Percent of Meal Consumed 100% 100% Stool Size Moderate Stool Color Brown Stool Consistency Soft # Voids 1 1 # Bowel Movements 1 Exam: Constitutional; Afebrile, cooperative, alert, not in distress. Eyes- No icterus, , No periorbital swelling Ears- Ext ear normal, hearing normal to conversation. Neck- Midline trachea, supple Respiratory system: Air Entry equal on both sides, bilateral expiratory wheezing present CVS- Rate rhythm regular, S1,S2 heard, no gallop, no rub. 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 Medical - PN: Obj Da - Labs CBC & Chem 7: 12/17/17 04:29 12/17/17 04:29 Labs: Abnormal Lab Results 12/17/17 12/17/17 12/17/17 08:42 04:29 04:29 RBC 3.97 L Hgb Hct 39.9 L MCV 100.3 H RDW 15.5 H Seg Neutrophils % Lymphocytes % 11 L Metamyelocytes % 3 H Myelocytes % 1 H RBC Morphology Abnorm A Anisocytosis Macrocytosis 1+ A Morley-Carmine Bodies VBG Lactic Acid 2.4 H BUN 31 H Glucose 130 H AST 48 H ALT 81 H Alkaline Phosphatase 28 L Albumin 2.6 L Globulin 3.9 H Albumin/Globulin Ratio 0.7 L 12/16/17 12/16/17 12/15/17 03:49 03:49 04:05 RBC 3.82 L Hgb 13.0 L Hct 38.4 L MCV 100.5 H RDW 15.5 H Seg Neutrophils % 81 H Lymphocytes % 7 L Metamyelocytes % Myelocytes % RBC Morphology Abnorm A Anisocytosis 1+ A Macrocytosis 1+ A Morley-Carmine Bodies Few A VBG Lactic Acid BUN 28 H 34 H Glucose 137 H 137 H AST ALT Alkaline Phosphatase 30 L Albumin 2.6 L 2.5 L Globulin 4.1 H 4.5 H Albumin/Globulin Ratio 0.6 L 0.6 L 12/15/17 04:05 RBC 3.89 L Hgb 13.1 L Hct 39.2 L MCV 100.8 H RDW 15.4 H Seg Neutrophils % 86 H Lymphocytes % 3 L Metamyelocytes % Myelocytes % RBC Morphology Abnorm A Anisocytosis Macrocytosis 1+ A Morley-Carmine Bodies VBG Lactic Acid BUN Glucose AST ALT Alkaline Phosphatase Albumin Globulin Albumin/Globulin Ratio Meds: Medications Acetaminophen (Tylenol) 650 mg PO Q4-6HP PRN PRN Reason: PAIN/FEVER > 101 Albuterol/Ipratropium (Duoneb) 3 ml NEB Q4HRT [facility] Last Admin: 12/17/17 15:17 Dose: 3 ml Budesonide (Pulmicort) 0.5 mg NEB Q12 [facility] Last Admin: 12/17/17 08:31 Dose: 0.5 mg Docusate Sodium (Colace) 100 mg PO BID [facility] Last Admin: 12/17/17 08:08 Dose: Not Given Heparin Sodium (Porcine) (Heparin) 5,000 unit SQ Q12 [facility] Last Admin: 12/17/17 08:06 Dose: 5,000 unit Hydralazine HCl (Apresoline) 10 mg IV Q4-6HP PRN PRN Reason: Hypertension Levofloxacin (Levaquin) 750 mg in 150 mls @ 100 mls/hr IV Q48H [facility] Last Admin: 12/17/17 08:09 Dose: 100 mls/hr Magnesium Sulfate (Magnesium Sulfate) 2 gm in 50 mls @ 50 mls/hr IV UD PRN PRN Reason: MG = or < 1.7 Acetaminophen (Ofirmev) 1,000 mg in 100 mls @ 200 mls/hr IV Q6HP PRN PRN Reason: PAIN/FEVER > 101 Piperacillin Sod/Tazobactam (Sod 2.25 gm/ Dextrose) 50 mls @ 100 mls/hr IV Q6H [facility] Last Admin: 12/17/17 17:08 Dose: 100 mls/hr Iron Carb/Multivit/Drug Abuse Social Worker/Folic Acid (Multivitamin W/Minerals) 1 tab PO DAILY [facility] Last Admin: 12/17/17 08:06 Dose: 1 tab Lisinopril (Zestril) 10 mg PO DAILY [facility] Last Admin: 12/17/17 08:06 Dose: 10 mg Lorazepam (Ativan) 0 mg IV Q4HP PRN PRN Reason: ANXIETY/SEDATION Magnesium Hydroxide (Milk Of Magnesia) 30 ml PO HSP PRN PRN Reason: Constipation Methylprednisolone Sodium Succinate (Solu-Medrol) 60 mg IV Q6 [facility] Last Admin: 12/17/17 17:09 Dose: 60 mg Nicotine (Nicoderm) 21 mg TOPICAL DAILY@1000 [facility] Last Admin: 12/17/17 12:35 Dose: Not Given Ondansetron HCl (Zofran) 4 mg IV Q4-6HP PRN PRN Reason: Nausea And Vomiting Oxycodone HCl (Roxicodone) 5 mg PO Q4HP PRN PRN Reason: PAIN LEVEL 3-6 Last Admin: 12/17/17 08:07 Dose: 5 mg Potassium Chloride (Klor-Con) 40 meq PO DAILYP PRN PRN Reason: K+ < 3.5 Senna/Docusate Sodium (Senna Plus Tablet) 1 tab PO HS [facility] Last Admin: 12/16/17 20:36 Dose: Not Given Sodium Chloride (Saline Flush) 10 ml IV Q8 [facility] Last Admin: 12/17/17 16:00 Dose: 10 ml Medical - PN: A/P - Time Spent With Patient Total time spent is greater than 50% in coordination of care (as documented) at patient's floor/unit and/or counseling patient: - Narrative A/P Narrative: A/P Acute hypoxic respiratory failure BIlateral Pneumonia Severe Sepsis COPD exacerbation, Acute Hypertension, uncontrolled Lactic acidosis resolved (last lactate 1.9 on ABG) Plan Monitor on telemetry Continue IV antibiotics, steroids and duonebs, Maintain oxygen more than 90, supplement oxygen via nasal cannula, patient has not needed BiPAP for 24 hours if condition worsens will consider BiPAP treatment. Continue pt on zosyn and levoflox, today is day 4 of therapy await microbiology negative growth so far descalate abx as per culture results. strep and mycoplasma pneumoniae negative. IV hydralazine as needed if the patient's blood pressure goes up to high, Isuprel 10 mg added to his regimen Chest x-ray this morning is interpreted as no acute abnormality by the radiologist hep sq dvt prophylaxis Diet dysphagia diet full code. Medical - PN: Qual - Stroke Symptom Onset Unknown: No - VTE Deep Vein Thrombosis/Pulmonary Embolism Present on Admission: No
[2017-12-17] MEDS: hydrALAZINE 20 MG/ML VIAL IV PRN ×2 (19:47→23:39)
[2017-12-17] MEDS: SENNOSIDES/DOCUSATE SODIUM 1 TAB TABLET PO SCH (20:24)
[2017-12-18] MEDS: IPRATROPIUM/ALBUTEROL 3 ML AMPUL.NEB NEB SCH ×3 (03:19→11:39)
[2017-12-18] MEDS: hydrALAZINE 20 MG/ML VIAL IV PRN (03:53)
[2017-12-18 05:03] LABS: Mean Cell Volume 100.5 fL (80.0-100.0); Mean Corpuscular Hemoglobin 33.2 pg (26.0-34.0); Platelet Count 218 K/mcL (140-440); RBC 4.16 M/mcL (4.50-5.90); Red Cell Distribution Width 15.3 % (11.5-14.5)
[2017-12-18] MEDS: methylPREDNISolone SOD SUCC 125 MG/2 ML VIAL IV SCH (05:19)
[2017-12-18] MEDS: 0.9 % SODIUM CHLORIDE 10 ML SYRINGE IV SCH (05:20)
[2017-12-18] MEDS: PIPERACILLIN SODIUM/TAZOBACTAM 2.25 GM in DEXTROSE 5% IN WATER 50 ML IV SCH (05:21)
[2017-12-18 05:38] LABS: ALT/SGPT 66 U/l (0-40); Albumin 2.8 gm/dL (3.2-5.2); Albumin/Globulin Ratio 0.7 (1.0-2.3); Alkaline Phosphatase 27 U/L (39-117); Bilirubin,Direct < 0.2 mg/dL (0.0-0.3); Blood Urea Nitrogen 26 mg/dl (8-23); Gamma Glutamyl Transpeptidase 31 U/L (8-61); Uric Acid 2.5 mg/dL (2.5-8.0)
[2017-12-18 06:23] LABS: Band Neutrophils % 6 % (0-10); Lymphocytes % 13 % (15-49); Macrocytosis 1+ (NONE SEEN); Metamyelocytes % 6 % (0-0); Monocytes % (Manual) 3 % (1-12); Platelet Estimate NORMAL (NORMAL); RBC Morphology ABNORM (NORMAL); Segmented Neutrophils % 71 % (38-78)
[2017-12-18] MEDS: BUDESONIDE 0.5 MG/2 ML AMPUL.NEB NEB SCH (07:43)
[2017-12-18] MEDS: LISINOPRIL 10 MG TABLET PO SCH (08:43)
[2017-12-18] MEDS: MULTIVIT,THER IRON,CA,FA & MIN 1 TABLET PO SCH (08:44)
[2017-12-18] MEDS: DOCUSATE SODIUM 100 MG CAPSULE PO SCH (08:44)
[2017-12-18] MEDS: HEPARIN 5,000 UNIT/ML VIAL SQ SCH (08:44)
[2017-12-18] MEDS: NICOTINE 21 MG PATCH TOPICAL SCH (11:01)
--- NOTE | 2017-12-18 11:38 | Discharge Summary ---
Medical - DS: Prov Patient information: Note initiated : 12/18/17 at 11:28 am Service Date, if different from initiated Date: [] Patient: Tony Newton 67 y/o M admitted on 12/13/17 for Respiratory Distress/Pneumonia, Sepsis, Hypoxia. Chief Complaint: [] Date of admission: 12/13/17 13:42 Discharge date: 12/18/17 Primary care physician: Oz Faulkner Medical - DS: Meds - Discharge Medications Prescriptions: Amoxicillin/Potassium Clav [Augmentin] 875 mg PO Q12H #10 tab Ipratropium/Albuterol Sulfate [Combivent] 2 puff INH QID 30 Days #1 inhaler Levofloxacin [Levaquin] 750 mg PO DAILY #3 tab Lisinopril [Zestril] 10 mg PO DAILY #30 tab oxyCODONE HCL [Roxicodone] 5 mg PO Q4HP PRN #14 tab PRN Reason: Pain Level 3-6 predniSONE [Deltasone] 40 mg PO DAILY #10 tab Active and Home Medications: Home Medications tiotropium bromide INHALATION 02/23/16 [History Confirmed 02/23/16 Last Taken Unknown] Medical - DS: Hosp Hospital course: DISCHARGE DIAGNOSIS Acute hypoxic respiratory failure- clinically improved now on room air. BIlateral Pneumonia- CAP Vs Asp PNa-complaint resolved status post 4 days antibiotics. Continue additional 4 days Severe Sepsis- resolved COPD exacerbation, Acute-resolved Hypertension,-suboptimally controlled. Follow-up PCP for further management Lactic acidosis resolved (last lactate 1.9 on ABG) BRIEF HOSPITAL COURSE Mr. Newton is a 67 year old M The patient is a 67-year-old gentleman with over [id number] history of smoking, an active smoker who went in to [facility] ER with worsening shortness of breath that had evolved over the last 7 days. The patient's symptoms started with upper respiratory symptoms, coryza, runny nose, and not feeling well. However, over the last couple of days he has gotten progressively short of breath, limiting his ability to function. He has been increasingly expectorating white, frothy sputum. He had associated fever along with chills and sweats. He denies headache, diarrhea, chest pain. Initial workup in the ER was significant for a white count of 12.6, sats in low 70s on room air with a pH of 7.33. Due to lack of availability of beds at [facility], Hospitalist Service was consulted at [facility]. The patient also in the meanwhile had a chest x-ray done which showed bibasilar infiltrates, suspected for pneumonia, along with EKG with sinus tachycardia without any ST changes. On arrival to the ICU, the patient is off BiPAP as he did not tolerate on the way. He is in significant distress, unable to talk in full sentences. He was able to endorse history as above. He denies recent travel. He denies taking pneumonia or flu vaccine. His last hospitalization for pneumonia was [address] [facility]. He denies changes in medications. He continues to smoke. However, pledges to quit and has not had a smoke in the last 3 days. December 14 Patient seen and examined, overnight the patient did require BiPAP because of respiratory distress however this morning he is able to remain off BiPAP and able to provide some history. He still complains of shortness of breath but feels better than last night. The patient denies any other symptoms. Has any chest pain no headache no dizziness. He is able to tolerate p.o. diet well without any nausea vomiting. December 15 Patient seen and examined no acute overnight events, tolerated BiPAP well last night. This morning he is on nasal cannula sitting comfortably in the bed does not have any shortness of breath while resting. He is able to tolerate p.o. but does not have much of an appetite. Labs reviewed. He has no acute complaints december 16 Patient seen and examined, no acute overnight events, he was on BiPAP last night. This morning he is on 3 L oxygen and his oxygen saturation is more than 90. He does not have shortness of breath at rest. He still has significant wheezing but air entry is better than yesterday. He denies any acute complaints december 17 Patient seen and examined, no acute overnight events, he was sitting comfortably in the bed. He is being weaned off oxygen has significant wheezing still. The patient denies any other acute complaints His blood pressure remains elevated patient will be started on lisinopril 10 mg once a day December 18-patient doing well. No overnight events. No concerns per staff. On room air. Ambulating and tolerating physical therapy. Tolerating diet. Creatinine at 0.8. White count normalized.negative cultures ABG 12/18- 7.4 his/46/55 Discharge diagnosis: . - Time Spent with Patient Total time spent providing and/or coordinating discharge services: Greater than 30 minutes Medical - DS: Exam - Constitutional Vitals: Vital Signs Temp Pulse Pulse Resp BP BP Pulse Ox 12/18/17 08:17 97 H 99 12/18/17 08:01 89 156/94 100 12/18/17 07:55 94 H 156/94 98 12/18/17 07:54 95 H 166/101 94 12/18/17 07:51 94 H 166/101 92 12/18/17 07:46 96 H 18 93 12/18/17 07:45 18 93 12/18/17 07:43 98.8 F 12/18/17 04:01 87 147/99 97 12/18/17 04:00 84 18 12/18/17 03:52 88 164/103 96 12/18/17 03:48 98.5 F 93 H 20 164/103 97 12/18/17 01:20 76 169/97 99 12/18/17 01:12 88 19 169/97 97 12/18/17 00:46 98.5 F 12/18/17 00:32 94 H 143/86 96 12/17/17 23:41 98.5 F 101 H 30 H 176/104 92 18 22:51 100 H 16 18 20:58 101 H 154/81 94 18 20:52 99.3 F H 103 H 26 H 154/81 94 18 20:01 97 H 189/102 100 18 20:00 104 H 94 1818 19:26 104 H 20 18 19:22 96 18 18:21 92 H 170/106 98 12/17/17 16:10 99.0 F H 101 H 170/91 96 18 15:24 99 H 18 18 12:09 99.1 F H 154/99 Intake and Output 12/17/17 12/18/17 12/18/17 21:59 05:59 13:59 Intake Total 1100 / 1100 410 / 410 50 / 50 Output Total 301 / 301 Balance 799 / 799 410 / 410 50 / 50 Intake: IV 50 / 50 50 / 50 50 / 50 Zosyn 2.25 gm In Dextrose 5% in 50 / 50 50 / 50 50 / 50 Water 50 ml @ 100 mls/hr IV Q6H [facility] Rx#:[id number] Oral 1050 / 1050 360 / 360 Output: Void Amount 300 / 300 Stool Other: Meal Dinner Percent of Meal Consumed 100% Stool Size Small Stool Color Brown Stool Consistency Loose # Voids 1 1 1 # Bowel Movements 1 1 Weight 153 lb 8 oz Medical - DS: Data Labs on day of discharge: Labs from last 24 hours 12/18/17 12/18/17 12/13/17 03:40 03:40 14:18 WBC 9.8 RBC 4.16 L Hgb 13.8 Hct 41.8 MCV 100.5 H MCH 33.2 MCHC 33.0 RDW 15.3 H Plt Count 218 MPV 7.9 Total Counted 100 Seg Neutrophils % 71 Band Neutrophils % 6 Lymphocytes % 13 L Monocytes % (Manual) 3 Metamyelocytes % 6 H Reactive Lymphocytes 1 Platelet Estimate Normal RBC Morphology Abnorm A Macrocytosis 1+ A Sodium 138 Potassium 4.7 Chloride 98 Carbon Dioxide 29 Anion Gap 11.0 BUN 26 H Creatinine 0.8 GFR Calculation 92 Glucose 144 H Uric Acid 2.5 Calcium 9.8 Phosphorus 3.7 Magnesium 2.2 Total Bilirubin 0.3 Direct Bilirubin < 0.2 GGT 31 AST 23 ALT 66 H Alkaline Phosphatase 27 L Lactate Dehydrogenase 224 Total Protein 6.8 Albumin 2.8 L Globulin 4.0 H Albumin/Globulin Ratio 0.7 L Triglycerides 103 Ur L.pneumophila Ag Not detected Preliminary micro results at discharge 12/13/17 14:45 Blood Culture - Preliminary Blood 12/13/17 14:45 Blood Culture - Preliminary Blood Medical - DS: A/P - Patient/Caregiver Discharge Instructions Activity: increase activity as tolerated Diet: Regular Diet Additional Instructions: Follow-up PCP in 5 days F/u orthopedics as scheduled by orthopedics along with post op care. I recommend PCP to check CBC BMP UA as a posthospital follow-up and Chest x-ray in 1 week. Antibiotics for additional 4 days steroids for additional 5 days Please schedule pulmonary function test as outpatient in 3 weeks Continue aggressive bowel regimen to prevent constipation Continue fall precautions All meals on chair sitting upright at 90 degrees to prevent aspiration Return to ER if worsening fever chills shortness of breath, diarrhea, bleeding Review risk and side effect profile of medications including antibiotics. Side effect may include mild to severe reaction including rash, diarrhea, cdiff and even which can be prevented by close follow-up with PCP and monitoring for side effects Refrain from smoking and alcohol Continue diet and activity as advised Discussed importance of medication adherence Please review medication list with patient prior to discharge Please schedule follow-up with PCP/Providers prior to discharge and provide printouts Portions of this chart may have been created with [employer] voice recognition software. Occasional wrong-word or ?sound-like? substitutions may have occurred due to the inherent limitations of voice recognition software. Please read the chart carefully and recognize, using context, where the substitutions have occurred. CC- PCP Prescriptions: Amoxicillin/Potassium Clav [Augmentin] 875 mg PO Q12H #10 tab Ipratropium/Albuterol Sulfate [Combivent] 2 puff INH QID 30 Days #1 inhaler Levofloxacin [Levaquin] 750 mg PO DAILY #3 tab Lisinopril [Zestril] 10 mg PO DAILY #30 tab oxyCODONE HCL [Roxicodone] 5 mg PO Q4HP PRN #14 tab PRN Reason: Pain Level 3-6 predniSONE [Deltasone] 40 mg PO DAILY #10 tab - Follow up Plan Follow up with: Nataliya Diez MD [Physician] - 12/28/17 11:15 am Disposition: Home, Self-Care Prognosis: Fair Rehab Potential: Fair I certify that the patient requires SNF services: No Overall status at discharge: patient is progressing back to baseline Medical - DS: Qual - VTE Deep Vein Thrombosis/Pulmonary Embolism Present on Admission: No
== END 2017-12-18 12:15 | disposition home or self-care (01) | DRG 871 ==
LOC: ICU 13:42
PROVIDERS: ADMIT Internal Medicine; ATTEND Internal Medicine